=== PATIENT | male | born 1955 | race Caucasian/White ===

== ENCOUNTER 2022-04-05 05:45 | Day surgery (SDC) | payer MEDICARE, OTHER ==
[2022-04-05] MEDS: Lactated Ringers 1,000 ML IV SCH ×2 (06:14→06:47)
[2022-04-05] MEDS ORDERED: Reglan 10 MG/2 ML IV ONE (07:19)
[2022-04-05] MEDS ORDERED: Reglan 10 MG/2 ML ONE (07:21)
[2022-04-05] MEDS ORDERED: DIPRIVAN 200 MG/20 ML IV ONE ×3 (08:01→08:21)
[2022-04-05] MEDS ORDERED: Xylocaine-Mpf 2% 5 Ml Vial ONE (08:01)
[2022-04-05 09:05] VITALS: PULSE 67; O2SAT 96
--- NOTE | 2022-04-05 09:09 | OP ---
SURGERY DATE/TIME: 04/05/2022 0802 PREOPERATIVE DIAGNOSES: 1) Abdominal pain. 2) Diarrhea. POSTOPERATIVE DIAGNOSIS: Normal colon. PROCEDURE: Diagnostic colonoscopy. SURGEON: Shawn Beltran M.D. ANESTHESIA: MAC by Guido Gonzalez CRNA. ESTIMATED BLOOD LOSS: None. SPECIMENS: None. DESCRIPTION OF PROCEDURE: After informed written consent was obtained, the patient was taken to the endoscopy suite. He was placed in the left lateral decubitus position. Anesthesia was titrated to desired level of consciousness. Digital rectal exam showed normal sphincter tone and no internal lesions. The scope was inserted into the rectum and sequentially the entire colonic mucosa was traversed. The level of cecum was reached and verified with direct visualization of the ileocecal valve. Upon withdrawal careful mucosal inspection revealed no gross abnormalities. There were no polyps or abnormal lesions encountered. Prior to withdrawal retroflexion showed no internal lesions. The scope was removed. The patient was transferred to the recovery room in good condition. On review of his symptomatology and medications, it was discovered that he had a recent increase in his Metformin dosage due to an elevated A1C. I have advised that he decrease his Metformin from 500 mg t.i.d. to b.i.d. to see if those symptoms improve and follow up with primary care physician.
[2022-04-05 09:27] VITALS: BP 139/74
== END 2022-04-05 08:25 | disposition home or self-care (01) ==
LOC: SDC 05:45
PROVIDERS: ATTEND Family Medicine
DX: R10.9 Unspecified abdominal pain (principal); R19.7 Diarrhea, unspecified; E11.9 Type 2 diabetes mellitus without complications
CPT/HCPCS: 82947; J2704